=== PATIENT | male | born 1965 | race Two or more races ===

== ENCOUNTER 2020-03-03 10:20 | Inpatient (IN) | payer OTHER, SELFPAY ==
[~2020-03-03] VITALS: Ht 167.6 cm; Wt 82.6 kg
--- NOTE | 2020-03-03 10:20 | NUR ---
SHERIF RA 89 from Home COVID + last Wednesday (02/26/20) +SOB-worse now, 86% O2 saturation RA. to ER bed 6, hooked to monitor, changed to hosp gown, warm blanket provided, patient aao X 4, awaiting MD carlos.
--- NOTE | 2020-03-03 10:25 | NUR ---
IV LINE ESTABLISHED BLOOD DRAWN AND SENT TO LAB.
--- NOTE | 2020-03-03 10:30 | NUR ---
Dr Torres at bedside
--- NOTE | 2020-03-03 10:40 | NUR ---
LABORER MARINE TERMINAL AT BEDSIDE FOR XRAY.
[2020-03-03] MEDS ORDERED: DEXAMETHASONE SOD PHOSPHATE 10 MG/ML VIAL ONE (10:42)
[2020-03-03 10:46] LABS: BASOPHILS % (AUTO) 0.2 % (0.0-2.0); HEMATOCRIT 44 % (39-51); HEMOGLOBIN 15.2 g/dL (13.5-17.5); LYMPHOCYTES # (AUTO) 1.7 /CMM (0.8-4.8); LYMPHOCYTES % (AUTO) 17.7 % (20.0-44.0); MEAN CORPUSCULAR HGB CONC 34 g/dl (31.0-36.0); MEAN CORPUSCULAR VOLUME 94 fL (80-96); MONOCYTES # (AUTO) 0.5 /CMM (0.1-1.30); MONOCYTES % (AUTO) 4.8 % (2.0-12.0); NEUTROPHILS # (AUTO) 7.6 /CMM (1.8-8.9); NEUTROPHILS % (AUTO) 77.3 % (43.0-81.0); PLATELET COUNT (AUTO) 289 /CMM (150-450); RED BLOOD CELL COUNT(AUTO) 4.68 MIL/uL (4.5-6.0); WHITE BLOOD COUNT (AUTO) 9.8 K/uL (4.3-11.0)
[2020-03-03] MEDS ORDERED: IPRATROPIUM NEB FS 0.5 MG/2.5 ML AMPUL.NEB ONE (10:52)
[2020-03-03] MEDS ORDERED: ALBUTEROL FS 2.5 MG/3 ML VIAL.NEB ONE (10:52)
[2020-03-03 10:57] LABS: CALCIUM, SERUM 9.5 mg/dL (8.5-10.1); CARBON DIOXIDE 26 mmol/L (21-32); CHLORIDE 102 mmol/L (98-107); CREATININE 1.5 mg/dL (0.6-1.3); GLUCOSE 207 mg/dL (74-106); POTASSIUM 3.8 mmol/L (3.5-5.1); SODIUM SERUM 139 mmol/L (136-145); UREA NITROGEN, BLOOD 31 mg/dL (7-18)
--- NOTE | 2020-03-03 10:58 | NUR ---
ongoing breathing tx
[2020-03-03] MEDS ORDERED: IPRATROPIUM NEB FS 0.5 MG/2.5 ML AMPUL.NEB NEB ONE (11:00)
[2020-03-03] MEDS ORDERED: ALBUTEROL FS 2.5 MG/3 ML VIAL.NEB NEB ONE (11:00)
[2020-03-03] MEDS ORDERED: DEXAMETHASONE SOD PHOSPHATE 10 MG/ML VIAL IV ONE (11:00)
[2020-03-03 11:09] LABS: ALANINE AMINOTRANSFERASE 34 U/L (12-78); ALBUMIN 2.7 g/dL (3.4-5.0); ALKALINE PHOSPHATASE 97 U/L (46-116); ASPARTATE AMINOTRANSFERASE 29 U/L (15-37); B-TYPE NATRIURETIC PEPTIDE 42 PG/ML (0-125); BILIRUBIN,DIRECT 0.2 mg/dL (0.0-0.2); BILIRUBIN,TOTAL 0.4 mg/dL (0.2-1.0); TOTAL PROTEIN, SERUM 8.2 g/dL (6.4-8.2)
--- NOTE | 2020-03-03 12:21 | NUR ---
removed from oxygen, noted at 89% on RA, asked patient to walk around isolation room without oxygen, O2 saturation at 85%, MD made aware, change of plan, MD decided to admit the patient
--- NOTE | 2020-03-03 13:40 | NUR ---
ANGELA PARADI TENDER AT BEDSIDE FOR EVAL.
--- NOTE | 2020-03-03 14:02 | NUR ---
CALLED HOUSE SUP FOR TELE BED
--- NOTE | 2020-03-03 14:15 | NUR ---
ROOM 114-1
--- NOTE | 2020-03-03 14:20 | NUR ---
COVID SWAB DONE AND SENT TO LAB
[2020-03-03] MEDS ORDERED: MAG HYDROX/AL HYDROX/SIMETH 30 ML UDC PO PRN (14:30)
[2020-03-03] MEDS ORDERED: DEXTROSE 50%-WATER 50 ML DISP.SYRIN IV PRN (14:30)
[2020-03-03] MEDS ORDERED: MAGNESIUM HYDROXIDE 30 ML UDC PO PRN (14:30)
[2020-03-03] MEDS ORDERED: ONDANSETRON HCL/PF 4 MG/2 ML VIAL IVP PRN (14:30)
[2020-03-03] MEDS ORDERED: HYDROCODONE/APAP 5/325MG 1 EACH TABLET PO PRN (14:30)
--- NOTE | 2020-03-03 15:13 | NUR ---
PT TRANSPORTED TO UNIT ON [facility] WITH EMT AND RN ST BEDSIDE W/ ACLS PROTOCOL. NAD NOTED DURING TRANSPORT. PT AMBULATED FROM [facility] POINT TO BED.
--- NOTE | 2020-03-03 15:15 | NUR ---
REPORT GIVEN TO ZAIRA COLLINS FOR MARSHALL AT THE BEDSIDE
[2020-03-03 16:00] VITALS: BP 155/84
[2020-03-03] MEDS: BLOOD SUGAR DIAGNOSTIC 1 EACH STRIP IN SCH ×2 (16:39→21:13)
[2020-03-03] MEDS: IV 1/2NS 1000 ML 1,000 ML IV PRN (16:39)
[2020-03-03] MEDS: HEPARIN SODIUM, PORCINE 5000 UNITS/1 ML VIAL SQ SCH (16:40)
[2020-03-03] MEDS: INSULIN REGULAR, HUMAN 100 UNIT/ML 3 ML VIAL SQ PRN ×2 (18:20→21:16)
[2020-03-03] MEDS ORDERED: ALBUTEROL FS 2.5 MG/3 ML VIAL.NEB NEB PRN (19:30)
--- NOTE | 2020-03-03 19:50 | NUR ---
TELE/RN OPENING NOTES: PT A/OX4. LAO SPEAKING, VERBALLY RESPONSIVE AND ABLE TO MAKE NEEDS KNOWN. NO SOB NOTED. NO S/S OF DISTRESS. ON 5L OF OXYGEN VIA NC SATURATING AT 93%. NO C/O PAIN AT THIS TIME. COVID 19 PRECAUTION MAINTAINED.ON TELE MONITORING WITH READING OF SR 90S. IV ON THE RIGHT WRIST #20G WITH 1/2 NS @75MLS/HR. SAFETY MEASURES IN PLACE. BED IN LOW, LOCKED POSITION. CALL LIGHT WITH IN REACH, WILL CONTINUE TO MONITOR ACCORDINGLY.
[2020-03-03 20:00] VITALS: BP 158/79
[2020-03-04] VITALS: BP 144/72
[2020-03-04 04:00] VITALS: BP 139/76
[2020-03-04 04:42] LABS: APPEARANCE,URINE CLEAR (CLEAR); BILIRUBIN,URINE NEGATIVE (NEGATIVE); BLOOD, URINE NEGATIVE Ery/uL (NEGATIVE); COLOR,URINE YELLOW (YELLOW); KETONES,URINE 15 (NEGATIVE); LEUKOCYTE ESTERASE ,URINE NEGATIVE (NEGATIVE); NITRITE, URINE NEGATIVE (NEGATIVE); PH,URINE 5.5 (5.0-8.0); PROTEIN,URINE NEGATIVE (NEGATIVE); UGLUCOSE >=1000 mg/dL (NEGATIVE); UROBILINOGEN,URINE 0.2 EU/dL (0.2)
[2020-03-04 04:53] LABS: BACTERIA,URINE Few /HPF (None Seen); RBC,URINE 0-2 /HPF (0-2); SQUAMOUS EPITHELIAL CELL,UR Rare /HPF (None Seen)
[2020-03-04] MEDS: IV 1/2NS 1000 ML 1,000 ML IV PRN ×2 (05:24→20:52)
--- NOTE | 2020-03-04 06:45 | NUR ---
TELE/RN CLOSING NOTES: Patient on the bed resting comfortably. Remains A/Ox4, Verbally responsive and able to make needs known. Syriac speaking, understands minimal Nepali. Client is on 5L oxygen via NC saturating at 93-94%. No SOB noted. No s/s of distress, no complains of pain at this time. IV on the R wrist #20g with 1/2 NS running at 75mls/hr. Tele reading of SR 70. Safety mechanisms in place. Bed in low, locked position with SR x2 up. Call light within reach. All due meds given as ordered. Kept pt. warm and comfortable, clean and dry at all times. All nursing needs given and rendered. Will endorse to day shift for MARSHALL.
[2020-03-04 07:41] LABS: BASOPHILS % (AUTO) 0.1 % (0.0-2.0); HEMATOCRIT 43 % (39-51); HEMOGLOBIN 14.3 g/dL (13.5-17.5); LYMPHOCYTES # (AUTO) 0.8 /CMM (0.8-4.8); LYMPHOCYTES % (AUTO) 14.9 % (20.0-44.0); MEAN CORPUSCULAR HGB CONC 34 g/dl (31.0-36.0); MEAN CORPUSCULAR VOLUME 95 fL (80-96); MONOCYTES # (AUTO) 0.5 /CMM (0.1-1.30); MONOCYTES % (AUTO) 8.8 % (2.0-12.0); NEUTROPHILS # (AUTO) 3.9 /CMM (1.8-8.9); NEUTROPHILS % (AUTO) 76.2 % (43.0-81.0); PLATELET COUNT (AUTO) 300 /CMM (150-450); RED BLOOD CELL COUNT(AUTO) 4.49 MIL/uL (4.5-6.0); WHITE BLOOD COUNT (AUTO) 5.2 K/uL (4.3-11.0)
[2020-03-04] MEDS: BLOOD SUGAR DIAGNOSTIC 1 EACH STRIP IN SCH ×4 (07:45→21:11)
[2020-03-04 08:00] VITALS: BP 175/92
[2020-03-04] MEDS ORDERED: METF-440 PO (08:00)
[2020-03-04] MEDS: HEPARIN SODIUM, PORCINE 5000 UNITS/1 ML VIAL SQ SCH ×2 (08:00→20:57)
[2020-03-04] MEDS ORDERED: LOSA25TA27 PO (08:00)
[2020-03-04] MEDS: INSULIN REGULAR, HUMAN 100 UNIT/ML 3 ML VIAL SQ PRN ×4 (08:00→21:10)
[2020-03-04 08:13] LABS: ALBUMIN 2.4 g/dL (3.4-5.0); BILIRUBIN,TOTAL 0.4 mg/dL (0.2-1.0); CREATININE 1.2 mg/dL (0.6-1.3); MAGNESIUM 2.5 mg/dL (1.8-2.4); PHOSPHORUS 3.2 mg/dL (2.5-4.9); POTASSIUM 4.3 mmol/L (3.5-5.1); TOTAL PROTEIN, SERUM 7.6 g/dL (6.4-8.2)
[2020-03-04 08:21] LABS: THYROID STIMULATING HORMONE 0.188 uIU/mL (0.358-3.74)
--- NOTE | 2020-03-04 09:27 | NUR ---
rn notes patient received on 3L nasal cannula, no sob noted, a/o x4 and speaks both welsh and east timorese. R wrist 20 gauge with 1/2 NS @ 75 ml per hour. BS checked and coverage given. 275 BS. Bed at the lowest setting, call light within reach, side rails up x2.
[2020-03-04] MEDS: DEXAMETHASONE SOD PHOSPHATE 10 MG/ML VIAL IV SCH (09:42)
[2020-03-04] MEDS: LOSARTAN POTASSIUM 25 MG TABLET PO SCH (09:43)
[2020-03-04 11:23] LABS: ABG BASE EXCESS -1.9 mmol/L; ABG OXYGEN SATURATION 87.3 % (92.0-98.5); ABG PCO2 35.5 mmHg (35.0-45.0); ABG PH 7.412 (7.350-7.450); ABG PO2 53.8 mmHg (75.0-100.0); AaDO2 132.8 mmHg; COHb 0.4 % (0.5-1.5); MetHb 0.2 % (0.0-1.5); O2Hb 86.8 % (94.0-97.0); SITE, ABG Right Radial
[2020-03-04 12:00] VITALS: BP 175/92
[2020-03-04 12:44] LABS: C-REACTIVE PROTEIN 15.5 mg/dL (0.0-0.9)
[2020-03-04] MEDS ORDERED: INVESTIGATIONAL MED MISC 1 EA in IV NS 0.9% 250 ML IV ONE (13:00)
[2020-03-04] MEDS: hydrALAZINE HCL IV 20 MG VIAL IV PRN ×2 (13:07→16:55)
[2020-03-04] MEDS ORDERED: hydrALAZINE HCL IV 20 MG VIAL IV PRN (13:30)
[2020-03-04 16:00] VITALS: BP 165/86
--- NOTE | 2020-03-04 18:53 | NUR ---
rn notes patient remains on 5L nasal cannula, no sob noted, a/o x4 and speaks both turkish and belarusian. R wrist 20 gauge with 1/2 NS @ 75 ml per hour. BS checked and coverage given. 275 BS. Bed at the lowest setting, call light within reach, side rails up x2. Blood suagr checked and insulin coverage given, no s/s of hypoglycemia noted.
[2020-03-04 20:00] VITALS: BP 149/77
--- NOTE | 2020-03-04 20:02 | NUR ---
STATEMENT SERVICES REPRESENTATIVE OPENING NOTES: RECEIVED PT ON 5LPM VIA NC AND IS TOLERATING WELL. NO SOB NOTED. NO S/S OF DISTRESS. PT IS MALTESE SPEAKING MAINLY BUT CAN UNDERSTAND SOME [place]IMBABWEAN. PT IS A/OX4. PT CONNECTED TO CONTINUOUS PULSE OX ANS SATURATING AT 83%. NO PAIN. PT HAS IV O R HAND #20 G AND IS BEING INFUSED WITH IV 1/2 NS AT 75ML/HR. INSTRUCTED PT TO USE CALL LIGHT. PT ON TELE BOX AND IS SR AT THIS TIME. BED KEPT IN LOW, LOCKED POSITION AND SIDE RAILS X 2 UP. WILL CONTINUE TO MONITOR PT.
--- NOTE | 2020-03-04 21:11 | NUR ---
BOWLING ALLEY FLOORS INSTALLER NOTES: BLOOD SUGAR THIS PM WAS 327. 8 UNITS OF REGULAR INSULIN WAS ADMINISTERED. PT HAS SNACK WELL. WILL CONTINUE TO MONITOR.
[2020-03-05] VITALS: BP 142/76
[2020-03-05 04:00] VITALS: BP 162/78
[2020-03-05] MEDS: hydrALAZINE HCL IV 20 MG VIAL IV PRN (04:38)
--- NOTE | 2020-03-05 06:47 | NUR ---
CLINICAL EDUCATOR CLOSING NOTES: ALL NEEDS WERE ATTENDED AND ANTICIPATED FOR. PT KEPT CLEAN, DRY, AND COMFORTABLE. NO SOB NOTED. NO S/S OF DISTRESS. PT REMAINS ON 5 LPM VIA NC AND IS TOLERATING WELL. PT HAS IV ON R WRIST #20G AND IS BEING INFUSED WITH IV 1/2 NS AT 75ML/HR. BED KEPT IN LOW, LOCKED POSITION, AND SIDE RAILS 2 UP. CALL LIGHT WITHIN REACH WELL. PT REFUSING TO BE CLEANED AND CHANGED. PT DOES NOT WANT TO WEAR GOWN EITHER. PT ON TELE MONITOR AND READING SHOWS SR 73. WILL ENDORSE TO AM NURSE FOR MARSHALL.
[2020-03-05 07:03] LABS: BASOPHILS % (AUTO) 0.2 % (0.0-2.0); HEMATOCRIT 44 % (39-51); HEMOGLOBIN 14.5 g/dL (13.5-17.5); LYMPHOCYTES # (AUTO) 0.9 /CMM (0.8-4.8); LYMPHOCYTES % (AUTO) 12.7 % (20.0-44.0); MEAN CORPUSCULAR HGB CONC 33 g/dl (31.0-36.0); MEAN CORPUSCULAR VOLUME 96 fL (80-96); MONOCYTES # (AUTO) 0.6 /CMM (0.1-1.30); MONOCYTES % (AUTO) 8.5 % (2.0-12.0); NEUTROPHILS # (AUTO) 5.5 /CMM (1.8-8.9); NEUTROPHILS % (AUTO) 78.6 % (43.0-81.0); PLATELET COUNT (AUTO) 355 /CMM (150-450); RED BLOOD CELL COUNT(AUTO) 4.61 MIL/uL (4.5-6.0)
--- NOTE | 2020-03-05 07:09 | NUR ---
SCRAP IRON CUTTER NOTES: LAB CALLED AND SAID HAVE INCOMING NURSE CALL IN REGARDS TO PLASMA.
[2020-03-05 07:34] LABS: ALBUMIN 2.4 g/dL (3.4-5.0); BILIRUBIN,DIRECT 0.1 mg/dL (0.0-0.2); BILIRUBIN,TOTAL 0.4 mg/dL (0.2-1.0); POTASSIUM 3.9 mmol/L (3.5-5.1); TOTAL PROTEIN, SERUM 7.2 g/dL (6.4-8.2)
--- NOTE | 2020-03-05 07:34 | NUR ---
CANVAS GOODS MAKER NOTES: ENDORSED TO AM NURSEADRIANNA, FOR MARSHALL.
--- NOTE | 2020-03-05 07:56 | NUR ---
GAVE REPORT TO ZAIRA THOMAS FOR CONTINUITY OF CARE
[2020-03-05 08:00] VITALS: BP 162/87
--- NOTE | 2020-03-05 08:15 | NUR ---
TELE/RN OPENING NOTES Received patient resting in bed, A&O x 4, Croatian speaking. On 5 L oxygen via NC, breathing even and non-labored. No respiratory or cardiac distress noted. On tele monitor, reading SR 82. Patient denies any pain/discomfort at this time. IV access located on R wrist # 20 gauge. patent and intact, and running 1/2 NS @ 75 ml/hr. No s/s of infection, infiltration, and bleeding noted on site. Sensation from all peripheral extremities intact. Fall precautions maintained. Will continue to monitor patient for any changes in condition.
[2020-03-05] MEDS: BLOOD SUGAR DIAGNOSTIC 1 EACH STRIP IN SCH ×4 (08:59→21:29)
[2020-03-05] MEDS: DEXAMETHASONE SOD PHOSPHATE 10 MG/ML VIAL IV SCH (09:41)
[2020-03-05] MEDS: LOSARTAN POTASSIUM 25 MG TABLET PO SCH (09:41)
[2020-03-05] MEDS: HEPARIN SODIUM, PORCINE 5000 UNITS/1 ML VIAL SQ SCH ×2 (09:43→20:37)
[2020-03-05 12:00] VITALS: BP 164/82
[2020-03-05] MEDS: INSULIN REGULAR, HUMAN 100 UNIT/ML 3 ML VIAL SQ PRN ×2 (12:35→17:04)
[2020-03-05] MEDS: IV 1/2NS 1000 ML 1,000 ML IV PRN (12:38)
[2020-03-05] MEDS: INVESTIGATIONAL MED MISC 1 EA in IV NS 0.9% 250 ML IV SCH (13:23)
[2020-03-05 16:00] VITALS: BP 156/83
--- NOTE | 2020-03-05 18:28 | NUR ---
TELE/RN CLOSING NOTES Received patient resting in bed, A&O x 4. No complaints of pain/discomfort during the whole shift. On 5 L oxygen via NC, breathing even and non-labored, no SOB noted. No respiratory or cardiac distress noted. On tele monitor, reading SR 68. Patient denies any pain/discomfort at this time. IV access located on R wrist # 20 gauge. patent and intact, and running 1/2 NS @ 75 ml/hr. No s/s of infection, infiltration, and bleeding noted on site. Sensation from all peripheral extremities intact. Fall precautions maintained. Will endorse to manufacturing supervisor 2nd shift nurse.
[2020-03-05] MEDS ORDERED: DEXTROSE 50%-WATER 50 ML DISP.SYRIN IV PRN (19:00)
--- NOTE | 2020-03-05 19:40 | NUR ---
RN OPENING NOTE RECEIVED PATIENT IN BED RESTING ALERT ORIENTED VERBALLY RESPONSIVE ABLE TO MAKE NEEDS KNOWN, NO SOB NOT ACUTE DISTRESS NOTED,HE IS ON MONITORING COVID 19 POSITIVE AND DROPLET/CONTACT ISOLATION,HE IS ON 5L OXYGEN VIA NASAL CANNULA, IV SITE IS ON RIGHT WRIST INTACT,PATENT 1/2 NORMAL SALINE RUNNING 75CC/HR.IMPLEMENT SAFETY MEASURE,CONTINUE TO MONITOR.
[2020-03-05 20:00] VITALS: BP 149/79
[2020-03-05] MEDS: *INSULIN REGULAR(HUMULIN R)HUM 100 UNIT/ML VIAL SQ PRN (21:43)
[2020-03-06] VITALS (8 sets, daily range): BP systolic 148–166; BP diastolic 79–89
[2020-03-06] MEDS: IV 1/2NS 1000 ML 1,000 ML IV PRN ×2 (04:24→17:35)
[2020-03-06] MEDS: hydrALAZINE HCL IV 20 MG VIAL IV PRN ×3 (04:40→21:35)
--- NOTE | 2020-03-06 04:41 | NUR ---
RN NOTE HYDRALAZINE 10MG/0.5ML GIVEN DUE TO BP 162/84
[2020-03-06 06:37] LABS: BASOPHILS % (AUTO) 0.1 % (0.0-2.0); HEMATOCRIT 43 % (39-51); HEMOGLOBIN 14.6 g/dL (13.5-17.5); LYMPHOCYTES % (AUTO) 16.5 % (20.0-44.0); MEAN CORPUSCULAR HGB CONC 34 g/dl (31.0-36.0); MEAN CORPUSCULAR VOLUME 95 fL (80-96); MONOCYTES # (AUTO) 0.6 /CMM (0.1-1.30); MONOCYTES % (AUTO) 9.6 % (2.0-12.0); NEUTROPHILS # (AUTO) 4.6 /CMM (1.8-8.9); NEUTROPHILS % (AUTO) 73.8 % (43.0-81.0); PLATELET COUNT (AUTO) 315 /CMM (150-450); RED BLOOD CELL COUNT(AUTO) 4.51 MIL/uL (4.5-6.0); WHITE BLOOD COUNT (AUTO) 6.2 K/uL (4.3-11.0)
--- NOTE | 2020-03-06 06:45 | NUR ---
RN CLOSING NOTE PATIENT REMAINS ALERT ORIENTED X4 VERBALLY RESPONSIVE ON 5L OXYGEN VIA NASAL CANNULA,NO SOB NOT ACUTE DISTRESS NOTED,ALL DUE MEDS GIVEN MD ORDERED,IV SITE IS ON RIGHT WRIST INTACT PATENT 1/2 NS [id number] CC/HR. FROM LAB CALLED AND SAID CONVULSANT PLASMA WILL GET READY,ENDORSE NEXT COMING SHIFT FOR CONTINUATION OF CARE
[2020-03-06 06:48] LABS: ALBUMIN 2.4 g/dL (3.4-5.0); BILIRUBIN,DIRECT 0.1 mg/dL (0.0-0.2); BILIRUBIN,TOTAL 0.4 mg/dL (0.2-1.0); CALCIUM, SERUM 8.9 mg/dL (8.5-10.1); CREATININE 0.9 mg/dL (0.6-1.3); MAGNESIUM 2.2 mg/dL (1.8-2.4); PHOSPHORUS 3.3 mg/dL (2.5-4.9); POTASSIUM 4.4 mmol/L (3.5-5.1); TOTAL PROTEIN, SERUM 6.8 g/dL (6.4-8.2)
--- NOTE | 2020-03-06 07:15 | NUR ---
Tele/RN - Assessment Patient is awake, A/O x 4, no complaints overnight, calm and cooperative, tele shows SR, denies pain, on oxygen at 5lpm via NC, without distress, positive for Covid-19, awaiting convalescent plasma today, completing Remdesivir, currently on dexamethasone. Morning labs reviewed, no critical results seen. Patient is ambulatory with steady gait. Discussed plan of care with pt and in agreement. Will continue with current medical management.
[2020-03-06] MEDS: BLOOD SUGAR DIAGNOSTIC 1 EACH STRIP IN SCH ×4 (07:36→21:35)
[2020-03-06] MEDS: INSULIN REGULAR, HUMAN 100 UNIT/ML 3 ML VIAL SQ PRN ×4 (07:52→22:10)
[2020-03-06] MEDS: DEXAMETHASONE SOD PHOSPHATE 10 MG/ML VIAL IV SCH (08:03)
[2020-03-06] MEDS: HEPARIN SODIUM, PORCINE 5000 UNITS/1 ML VIAL SQ SCH ×2 (08:04→21:34)
[2020-03-06] MEDS: LOSARTAN POTASSIUM 25 MG TABLET PO SCH (08:44)
--- NOTE | 2020-03-06 12:00 | NUR ---
Tele/RN - Notes Convalescent plasma given with no adverse reaction noted. VSS.
[2020-03-06] MEDS: INVESTIGATIONAL MED MISC 1 EA in IV NS 0.9% 250 ML IV SCH (12:17)
[2020-03-06] MEDS: ACETAMINOPHEN 325 MG TABLET PO PRN (12:20)
--- NOTE | 2020-03-06 18:49 | NUR ---
Tele/RN - End of shift summary Patient states feeling better, afebrile, comfortable on 5lpm via NC, SpO2 96-98%, denies pain. Convalescent plasma and Remdesivir dose given today with no adverse reaction seen. All needs attended. Will continue with current plan of care.
--- NOTE | 2020-03-06 19:50 | NUR ---
RN NOTE RECEIVED PATIENT IN BED, AOX4, OCCITAN SPEAKING BUT UNDERSTANDS DUTCH. PATIENT IS AMBULATORY, NO S/SX OF ACUTE DISTRESS AT THIS TIME. PATIENT'S BREATHING IS EVEN AND UNLABORED, ON 5 L OF OXYGEN VIA MASK, SATURATING AT 96%; TOLERATING WELL. PATIENT ON TELE MONITOR READING NSR, HR IS @70'S. NOTED IV SITE ON THE R WRIST WITH 0.45 NS REGULATED AT 75 ML/HR; PATENT AND FLUSHING WELL,NO S/S OF INFECTION OR INFILTRATION. SAFETY MEASURES IMPLEMENTED PER PROTOCOL. HEAD OF BED ELEVATED. BED IS LOCKED, IN LOWEST POSITION AND SIDE RAILS UP. CALL LIGHT WITHIN REACH OF THE PATIENT. WILL CONTINUE TO MONITOR AND REASSESS FOR ANY CHANGES. Addendum: 03/06/20 at 2019 by DEBBIE BOWEN RN PATIENT ON 5L OF SUPPLEMENTAL OXYGEN VIA NASAL CANNULA, SATURATING AT 96%
--- NOTE | 2020-03-06 20:30 | NUR ---
RN NOTE NOTED BP 166/79. REPOSITIONED AND RECHECKED BP, REVEALED 173/80. PRN HYDRALAZINE 10 MG ADMINISTERED ORDERED. WILL CONTINUE TO MONITOR.
--- NOTE | 2020-03-06 21:00 | NUR ---
RN NOTE BP RECHECKED AND REVEALED 151/78. WILL CONTINUE TO MONITOR BP, AND REASSESS.
[2020-03-07] VITALS (8 sets, daily range): BP systolic 133–171; BP diastolic 67–93
--- NOTE | 2020-03-07 04:00 | NUR ---
RN NOTE NOTED BP 166/83 AT 0400. REPOSITIONED AND RECHECKED BP, REVEALED 171/81 ACCOMPANIED BY 5/10 HEADACHE. PRN HYDRALAZINE 10 MG ADMINISTERED ORDERED. WILL CONTINUE TO MONITOR.
--- NOTE | 2020-03-07 05:00 | NUR ---
RN NOTE BP RECHECKED AND REVEALED 154/80. PATIENT STILL COMPLAINING OF 5/10 HEADACHE. PRN NORCO 5/325 MG ADMINISTERED ORDERED. WILL CONTINUE TO MONITOR.
[2020-03-07] MEDS: hydrALAZINE HCL IV 20 MG VIAL IV PRN (05:04)
[2020-03-07] MEDS: IV 1/2NS 1000 ML 1,000 ML IV PRN (06:33)
[2020-03-07] MEDS: BLOOD SUGAR DIAGNOSTIC 1 EACH STRIP IN SCH ×4 (06:41→22:00)
[2020-03-07] MEDS: INSULIN REGULAR, HUMAN 100 UNIT/ML 3 ML VIAL SQ PRN ×3 (06:50→17:43)
--- NOTE | 2020-03-07 06:58 | NUR ---
RN NOTE PATIENT REMAINS IN ROOM RESTING COMFORTABLY. NO SIGNS OF RESPIRATORY DISTRESS ON 5L VIA NC;TOLERATTING WELL SATURATING @ >95% SP02. PATIENT WAS KEPT CLEAN AND DRY THROUGHOUT THE SHIFT. ALL DUE MEDICATIONS WERE ADMINISTERED ORDERED; PATIENT TOLERATED WELL. LATEST BP 137/68. SAFETY MEASURES IMPLEMENTED, BED IN LOWEST POSITION, LOCKED, SIDE RAILS UP, CALL LIGHT WITHIN REACH. ENDORSED TO AM SHIFT RN FOR CONTINUITY OF CARE.
[2020-03-07 07:26] LABS: BASOPHILS % (AUTO) 0.1 % (0.0-2.0); HEMATOCRIT 42 % (39-51); HEMOGLOBIN 14.3 g/dL (13.5-17.5); LYMPHOCYTES # (AUTO) 0.8 /CMM (0.8-4.8); LYMPHOCYTES % (AUTO) 13.1 % (20.0-44.0); MEAN CORPUSCULAR HGB CONC 34 g/dl (31.0-36.0); MEAN CORPUSCULAR VOLUME 94 fL (80-96); MONOCYTES # (AUTO) 0.6 /CMM (0.1-1.30); MONOCYTES % (AUTO) 9.5 % (2.0-12.0); NEUTROPHILS # (AUTO) 4.7 /CMM (1.8-8.9); NEUTROPHILS % (AUTO) 77.3 % (43.0-81.0); PLATELET COUNT (AUTO) 281 /CMM (150-450); RED BLOOD CELL COUNT(AUTO) 4.48 MIL/uL (4.5-6.0); WHITE BLOOD COUNT (AUTO) 6.1 K/uL (4.3-11.0)
--- NOTE | 2020-03-07 07:30 | NUR ---
RN/JEZ RECEIVED PATIENT IN BED. NO ACUTE DISTRESS NOTED. PATIENT ALERT & ORIENTED X4. PATIENT ON 5L OXYGEN VIA NASAL CANULA. PATIENT ON COMPLAINT ADJUSTER, NORMAL SINUS RHYTHM NOTED. PATIENT RIGHT WRIST IV ACCESS INTACT, PATENT, FLUSHED WELL. PATIENT SAFETY MAINTAINED. CALL LIGHT WITHIN REACH. WILL CONTINUE TO MONITOR.
[2020-03-07 07:34] LABS: ALBUMIN 2.4 g/dL (3.4-5.0); BILIRUBIN,DIRECT 0.1 mg/dL (0.0-0.2); BILIRUBIN,TOTAL 0.4 mg/dL (0.2-1.0); CALCIUM, SERUM 8.6 mg/dL (8.5-10.1); CREATININE 0.8 mg/dL (0.6-1.3); POTASSIUM 4.2 mmol/L (3.5-5.1); TOTAL PROTEIN, SERUM 6.5 g/dL (6.4-8.2)
[2020-03-07] MEDS: DEXAMETHASONE SOD PHOSPHATE 10 MG/ML VIAL IV SCH (08:37)
[2020-03-07] MEDS: LOSARTAN POTASSIUM 25 MG TABLET PO SCH (08:37)
[2020-03-07] MEDS: HEPARIN SODIUM, PORCINE 5000 UNITS/1 ML VIAL SQ SCH ×2 (09:15→21:34)
[2020-03-07] MEDS: INVESTIGATIONAL MED MISC 1 EA in IV NS 0.9% 250 ML IV SCH (15:59)
--- NOTE | 2020-03-07 18:41 | NUR ---
RN/JEZ PATIENT IN BED. NO ACUTE DISTRESS NOTED. PATIENT ALERT & ORIENTED X4. PATIENT ON 5L OXYGEN VIA NASAL CANULA. PATIENT ON CRYPTOLOGIC SUPPORT SPECIALIST, NORMAL SINUS RHYTHM NOTED. PATIENT LEFT UPPER ARM MIDLINE IV ACCESS INTACT, PATENT, FLUSHED WELL. PATIENT SAFETY MAINTAINED. CALL LIGHT WITHIN REACH. WILL ENDORSE PLAN OF CARE TO ONCOMING NURSE FOR CONTINUITY OF CARE.
--- NOTE | 2020-03-07 19:10 | NUR ---
RN OPENING NOTE RECEIVED PATIENT IN BED RESTING ALERT ORIENTED X4 VERBALLY RESPONSIVE NO SOB NOT ACUTE DISTRESS NOTED,AT THIS TIME,HE IS ON 5L OXYGEN VIA NASAL CANNULA O2:96%,IV IS ON LEFT UPPER ARM INTACT PATENT.1/2 NORMAL SALINE RUNNING 75CC/HR.AMBULATORY, CONTINENT TO BOWEL/BLADDER,KEEP CALL LIGHT WITHIN REACH,IMPLEMENT SAFETY MEASURE,CONTINUE TO MONITOR
[2020-03-07] MEDS: *INSULIN REGULAR(HUMULIN R)HUM 100 UNIT/ML VIAL SQ PRN (22:04)
[2020-03-08] VITALS: BP 146/70
[2020-03-08 04:48] VITALS: BP 129/65
[2020-03-08 06:18] LABS: BASOPHILS % (AUTO) 0.2 % (0.0-2.0); EOSINOPHILS % (AUTO) 2.5 % (0.0-6.0); HEMATOCRIT 43 % (39-51); HEMOGLOBIN 14.4 g/dL (13.5-17.5); LYMPHOCYTES # (AUTO) 1.5 /CMM (0.8-4.8); LYMPHOCYTES % (AUTO) 21.6 % (20.0-44.0); MEAN CORPUSCULAR HGB CONC 34 g/dl (31.0-36.0); MEAN CORPUSCULAR VOLUME 95 fL (80-96); MONOCYTES # (AUTO) 0.7 /CMM (0.1-1.30); MONOCYTES % (AUTO) 10.2 % (2.0-12.0); NEUTROPHILS # (AUTO) 4.5 /CMM (1.8-8.9); NEUTROPHILS % (AUTO) 65.5 % (43.0-81.0); PLATELET COUNT (AUTO) 284 /CMM (150-450); RED BLOOD CELL COUNT(AUTO) 4.55 MIL/uL (4.5-6.0); WHITE BLOOD COUNT (AUTO) 6.8 K/uL (4.3-11.0)
--- NOTE | 2020-03-08 06:36 | NUR ---
RN CLOSING NOTE PATIENT REMAINS ALERT ORIENTED X4 VERBALLY RESPONSIVE NO SOB NOT ACUTE DISTRESS NOTED,ON 5L OXYGEN VIA NASAL CANNULA O2:96%,HE IS ON COVID 19 POSITIVE MONITORING AND ALSO DROPLET/CONTACT ISOLATION,IV IS ON LEFT UPPER ARM INTACT PATENT.1/2 NORMAL SALINE RUNNING 75CC/HR,ALL DUE MEDS GIVEN MD ORDERED,KEPT CLEAN AND DRY ALL THE TIME,KEPT CALL LIGHT WITHIN REACH,ENDORSE NEXT COMING SHIFT FOR CONTINUATION OF CARE.
--- NOTE | 2020-03-08 07:30 | NUR ---
RN OPENING NOTES Received patient in bed, A/O x4, Hebrew speaker, able to communicate in Norwegian, NC noted, delivering O2 @5L. tolerating well, saturating 99% on monitor, Patient on telemonitor, NSR reading in 80s, Skin is intact,Mid-line L UA midline, running 1/2 NS @ 75 cc/hr, intact and patent. IV. Safety measures implemented, call light in reach, bed in lowest position, will cont to monitor
[2020-03-08] MEDS: BLOOD SUGAR DIAGNOSTIC 1 EACH STRIP IN SCH ×4 (07:53→22:00)
[2020-03-08 08:00] VITALS: BP 137/71
[2020-03-08] MEDS: *INSULIN REGULAR(HUMULIN R)HUM 100 UNIT/ML VIAL SQ PRN ×3 (08:25→17:33)
[2020-03-08] MEDS: HEPARIN SODIUM, PORCINE 5000 UNITS/1 ML VIAL SQ SCH (08:26)
[2020-03-08] MEDS: DEXAMETHASONE SOD PHOSPHATE 10 MG/ML VIAL IV SCH (08:26)
[2020-03-08] MEDS: ACETAMINOPHEN 325 MG TABLET PO PRN (08:26)
[2020-03-08 08:41] LABS: ALBUMIN 2.5 g/dL (3.4-5.0); BILIRUBIN,DIRECT 0.2 mg/dL (0.0-0.2); BILIRUBIN,TOTAL 0.4 mg/dL (0.2-1.0); CALCIUM, SERUM 8.3 mg/dL (8.5-10.1); CREATININE 0.8 mg/dL (0.6-1.3); POTASSIUM 4.6 mmol/L (3.5-5.1); TOTAL PROTEIN, SERUM 5.7 g/dL (6.4-8.2)
[2020-03-08] MEDS: LOSARTAN POTASSIUM 25 MG TABLET PO SCH (08:48)
[2020-03-08 12:00] VITALS: BP_SYST 137; BP_SYST 142; BP_DIAS 71; BP_DIAS 76
[2020-03-08] MEDS: INVESTIGATIONAL MED MISC 1 EA in IV NS 0.9% 250 ML IV SCH (13:01)
--- NOTE | 2020-03-08 13:15 | NUR ---
STARTED INVESTIGATIONAL MED IV. BP NOTED 142/76
--- NOTE | 2020-03-08 13:30 | NUR ---
RECHECKED BP : 145/70 TOLERATING IV MEDICATION WELL, NO S/SX OF SIDE EFFECTS NOTED
[2020-03-08 16:00] VITALS: BP 152/74
[2020-03-08] MEDS: IV 1/2NS 1000 ML 1,000 ML IV PRN (18:25)
--- NOTE | 2020-03-08 19:25 | NUR ---
RN CLOSING NOTES PATIENT REMAIN IN BED, TOLERATING O2 SETTING WELL, SATURATING 96%, TELEMONITOR SHOWS NORMAL SINUS RHYTHM 70-80 NO S/SX RESP DISTRESS, NO SOB, NO PAIN, ALL MEDICATION GIVEN, IV IS INTACT, PATENT, AND INTACT, RUNNING 1/2 NS AT 75CC/HR, SKIN INTACT, COMFORT NEEDS MET, SAFETY MEASURES IMPLEMENTED, PATIENT IS CLEAN, BED IN LOWEST POSITION, CALL LIGHT IN REACH, WILL ENDORSE TO PM, NURSE FOR MARSHALL
[2020-03-08 20:00] VITALS: BP 141/71
[2020-03-09] VITALS (7 sets, daily range): BP systolic 105–154; BP diastolic 65–77
[2020-03-09] MEDS: MORPHINE SULFATE INJ 2 MG/ML DISP.SYRIN IV PRN ×2 (00:47→08:28)
[2020-03-09] MEDS: *INSULIN REGULAR(HUMULIN R)HUM 100 UNIT/ML VIAL SQ PRN ×2 (01:26→21:10)
[2020-03-09] MEDS: HEPARIN SODIUM, PORCINE 5000 UNITS/1 ML VIAL SQ SCH ×3 (01:28→20:55)
[2020-03-09] MEDS: IV 1/2NS 1000 ML 1,000 ML IV PRN ×2 (05:40→16:55)
[2020-03-09 06:37] LABS: BASOPHILS % (AUTO) 0.1 % (0.0-2.0); EOSINOPHILS % (AUTO) 0.6 % (0.0-6.0); HEMATOCRIT 42 % (39-51); HEMOGLOBIN 14.2 g/dL (13.5-17.5); LYMPHOCYTES # (AUTO) 0.9 /CMM (0.8-4.8); LYMPHOCYTES % (AUTO) 11.7 % (20.0-44.0); MEAN CORPUSCULAR HGB CONC 34 g/dl (31.0-36.0); MEAN CORPUSCULAR VOLUME 93 fL (80-96); MONOCYTES # (AUTO) 0.7 /CMM (0.1-1.30); MONOCYTES % (AUTO) 8.3 % (2.0-12.0); NEUTROPHILS # (AUTO) 6.2 /CMM (1.8-8.9); NEUTROPHILS % (AUTO) 79.3 % (43.0-81.0); PLATELET COUNT (AUTO) 284 /CMM (150-450); RED BLOOD CELL COUNT(AUTO) 4.49 MIL/uL (4.5-6.0); WHITE BLOOD COUNT (AUTO) 7.8 K/uL (4.3-11.0)
[2020-03-09 07:30] LABS: ALBUMIN 2.3 g/dL (3.4-5.0); BILIRUBIN,DIRECT 0.1 mg/dL (0.0-0.2); BILIRUBIN,TOTAL 0.3 mg/dL (0.2-1.0); TOTAL PROTEIN, SERUM 6.1 g/dL (6.4-8.2)
[2020-03-09] MEDS: BLOOD SUGAR DIAGNOSTIC 1 EACH STRIP IN SCH ×4 (07:53→21:11)
--- NOTE | 2020-03-09 07:57 | NUR ---
RN NOTES RECEIVED HAND OFF REPORT FROM AMA MENESES FOR MARSHALL UNTIIL REPLACEMENT RN ARRIVES. WILL CONT. TO MONITOR
[2020-03-09] MEDS: DEXAMETHASONE SOD PHOSPHATE 10 MG/ML VIAL IV SCH (08:09)
[2020-03-09] MEDS: LOSARTAN POTASSIUM 25 MG TABLET PO SCH (08:10)
[2020-03-09] MEDS: INSULIN REGULAR, HUMAN 100 UNIT/ML 3 ML VIAL SQ PRN ×3 (08:11→17:15)
--- NOTE | 2020-03-09 09:35 | NUR ---
RN NOTE Patient is resting in bed, A/O x4, showing no signs of acute distress, denies SOB when sitting only when ambulating, saturating >95% on 5L NC. IV line in clean and intact, flushing well. Bed is in lowest position, side rails x3 in upright position, call light is within reach, fall safety and aspiration precautions enforced. Will continue with plan of care.
[2020-03-09] MEDS ORDERED: TOCILIZUMAB 400 MG in IV NS 0.9% 80 ML IV ONE (10:00)
--- NOTE | 2020-03-09 18:06 | NUR ---
RN OPENING NOTE Patient is resting in bed, A/O x4, showing no signs of acute distress or SOB, saturating 96% on 5L NC. MARISOL midline is clean and intact running 0.45% NS @ 75mls/hour. All patient needs met, all due medications given. patient kept clean and dry throughout shift. Bed is in lowest position, side rails x3 in upright position, call light is within reach, fall safety and aspiration precautions enforced. Will endorse to restaurant shift supervisor.
[2020-03-10] VITALS: BP 105/65
[2020-03-10 04:00] VITALS: BP_SYST 105; BP_SYST 117; BP_DIAS 65
[2020-03-10] MEDS: IV 1/2NS 1000 ML 1,000 ML IV PRN ×2 (05:22→18:13)
[2020-03-10 06:21] LABS: BASOPHILS % (AUTO) 0.5 % (0.0-2.0); EOSINOPHILS % (AUTO) 0.7 % (0.0-6.0); HEMATOCRIT 40 % (39-51); HEMOGLOBIN 13.7 g/dL (13.5-17.5); LYMPHOCYTES # (AUTO) 1.2 /CMM (0.8-4.8); MEAN CORPUSCULAR HGB CONC 34 g/dl (31.0-36.0); MEAN CORPUSCULAR VOLUME 93 fL (80-96); MONOCYTES # (AUTO) 0.7 /CMM (0.1-1.30); MONOCYTES % (AUTO) 9.4 % (2.0-12.0); NEUTROPHILS # (AUTO) 5.7 /CMM (1.8-8.9); NEUTROPHILS % (AUTO) 74.4 % (43.0-81.0); PLATELET COUNT (AUTO) 300 /CMM (150-450); RED BLOOD CELL COUNT(AUTO) 4.32 MIL/uL (4.5-6.0); WHITE BLOOD COUNT (AUTO) 7.7 K/uL (4.3-11.0)
[2020-03-10 06:49] LABS: CALCIUM, SERUM 8.6 mg/dL (8.5-10.1); CREATININE 0.8 mg/dL (0.6-1.3); PHOSPHORUS 3.5 mg/dL (2.5-4.9); POTASSIUM 4.4 mmol/L (3.5-5.1)
--- NOTE | 2020-03-10 07:25 | NUR ---
MINK SLICER OPENING NOTES RECEIVED PT ON BED, AAOX4, RESPONSIVE TO STIMULI. ASSESSED NO PRESENCE OF ACUTE RESPIRATORY DISTRESS, ON O2 AT5 LPM VIA N/C, JUAN DANIEL WELL. PT STATED HE CAN BREATH BETTER IN MINIMAL EXERTION SUCH REPOSITIONING. ABD SOFT AND NON DISTENDED WITH ACTIVE BOWEL SOUNDS, ON BRP/URINAL. PT DENIES PAIN AND DISCOMFORT. SKIN WARM TO TOUCH AND DRY. IV SITE AT LEFT UPPER MIDLINE RUNNING 1/2NS @ 75 ML/HR. BED IN LOW LOCKED POSITION, SRX2 UP FOR SAFETY, CALL LIGHT WITHIN REACHED. TELE MONITOR SHOWS NSR AT 64. CONTINUE TO MONITOR CARE.
[2020-03-10] MEDS: BLOOD SUGAR DIAGNOSTIC 1 EACH STRIP IN SCH ×4 (07:42→22:01)
[2020-03-10 08:53] VITALS: BP 137/72
[2020-03-10] MEDS: LOSARTAN POTASSIUM 25 MG TABLET PO SCH (09:17)
[2020-03-10] MEDS: DEXAMETHASONE SOD PHOSPHATE 10 MG/ML VIAL IV SCH (09:17)
[2020-03-10] MEDS: INSULIN REGULAR, HUMAN 100 UNIT/ML 3 ML VIAL SQ PRN ×3 (09:18→16:41)
[2020-03-10] MEDS: HEPARIN SODIUM, PORCINE 5000 UNITS/1 ML VIAL SQ SCH (09:18)
--- NOTE | 2020-03-10 10:39 | NUR ---
FLOAT TENDER NOTES CONVALESCENT PLASMA INFUSED, FINISHED 03/09 PER CHARGE NURSE SOON. COMPLETED TASK LIST UNDER INTERVENTION.
[2020-03-10 12:12] VITALS: BP 121/71
--- NOTE | 2020-03-10 12:45 | NUR ---
LEAD ENGINEER NOTES O2 VIA N.C TITER TO 3LPM PT SATING 93-95%. INSTRUCTED DEEP BREATHING EXERCISES. PT ABLE TO UNDERSTOOD AND PERFORM CORRECTLY.
[2020-03-10 16:04] VITALS: BP 114/73
--- NOTE | 2020-03-10 18:50 | NUR ---
REAL ESTATE SUBAGENT CLOSING NOTES PT AAOX4, ABLE TO MAKE NEEDS KNOWN. ON ISOLATION FOR COVID19 POSITIVE, ON O2 AT 3LPM SATING >95%, JUAN DANIEL WELL. PT HAS NO C/O OF SOB THROUGHOUT THE SHIFT. BM TODAY. PT DENIES PAIN AND DISCOMFORT. NO NEW OPEN SKIN BREAKDOWN. TELE MONITOR ON NSR. IV SITE AT LEFT UPPER ARM MIDLINE PATENT IN FLUSHING RUNNING 1/2NS AT 75 ML/HR. BED IN LOW LOCKED POSITION, SRX2 UP FOR SAFETY, CALL LIGHT WITHIN REACHED. ENDORSED CARE TO NEXT SHIFT.
--- NOTE | 2020-03-10 19:40 | NUR ---
RN OPENING NOTE RECEIVED PATIENT IN BED RESTING ALERT ORIENTED X4 VERBALLY RESPONSIVE ABLE TO MAKE NEEDS KNOWN,ON 3L OXYGEN O2:97% HR:71. BREATHING IS EVEN AND UNLABORED NO SOB NOT ACUTE DISTRESS NOTED,ON MONITORING FOR COVID 19 POSITIVE AND DROPLET/CONTACT ISOLATION,IV SITE IS MID LINE ON LEFT UPPER ARM,INTACT, PATENT.IV HYDRATION RUINING 1/2 NS 75CC/HR.IMPLEMENT SAFETY MEASURE,BED IN LOW POSITION LOCKED,BED ALARM IS ON,KEEP CALL LIGHT WITHIN REACH,CONTINUE TO MONITOR.
[2020-03-10 20:00] VITALS: BP 118/72
[2020-03-10] MEDS: *INSULIN REGULAR(HUMULIN R)HUM 100 UNIT/ML VIAL SQ PRN (22:07)
[2020-03-11] VITALS: BP 137/77
[2020-03-11 04:00] VITALS: BP 117/67
--- NOTE | 2020-03-11 06:35 | NUR ---
RN CLOSING NOTE PATIENT REMAINS ON MONITORING FOR COVID 19 POSITIVE AND DROPLET/CONTACT ISOLATION,ALERT ORIENTED X4 VERBALLY RESPONSIVE NO SOB NOT ACUTE DISTRESS NOTED,BREATHING IS EVEN AND NON LABORED,ON 3L OXYGEN VIA NASAL CANNULA ,O2:96% IV SITE IS ON LEFT UPPER ARM MIDLINE INTACT PATENT,IV HYDRATION 1/2NS RUNNING 75CC/HR,ALL DUE MEDS GIVEN MD ORDERED,KEPT CLEAN AND DRY ALL THE TIME,KEPT CALL LIGHT WITHIN REACH,ALL NEEDS MET.ENDORSE NEXT COMING SHIFT FOR CONTINUATION OF CARE.
--- NOTE | 2020-03-11 07:21 | NUR ---
TELE/RN OPENING NOTES RECEIVED PATIENT ON BED. NO APPARENT RESPIRATORY DISTRESS NOTED. DENIES PAIN AT THIS TIME. ON TELE MONITOR SINUS BRAXTON 55 BPM. WILL CONTINUE TO MONITOR.
[2020-03-11] MEDS: INSULIN REGULAR, HUMAN 100 UNIT/ML 3 ML VIAL SQ PRN ×3 (07:40→17:02)
[2020-03-11] MEDS: BLOOD SUGAR DIAGNOSTIC 1 EACH STRIP IN SCH ×4 (07:41→22:00)
[2020-03-11 08:00] VITALS: BP 127/64
[2020-03-11] MEDS: DEXAMETHASONE SOD PHOSPHATE 10 MG/ML VIAL IV SCH (08:12)
[2020-03-11] MEDS: LOSARTAN POTASSIUM 25 MG TABLET PO SCH (08:37)
[2020-03-11] MEDS: IV 1/2NS 1000 ML 1,000 ML IV PRN ×2 (08:37→22:49)
[2020-03-11 09:51] LABS: ABG BASE EXCESS 0.6 mmol/L; ABG OXYGEN SATURATION 94.8 % (92.0-98.5); ABG PCO2 36.2 mmHg (35.0-45.0); ABG PH 7.445 (7.350-7.450); AaDO2 83.9 mmHg; COHb 0.3 % (0.5-1.5); MetHb 0.2 % (0.0-1.5); O2Hb 94.3 % (94.0-97.0); SITE, ABG Right Radial
--- NOTE | 2020-03-11 09:57 | NUR ---
TELE/RN NOTES CHEST XRAY RESULT IS AWARE. Addendum: 03/11/20 at 0958 by ROSA MARIA FLANAGAN RN ERROR
--- NOTE | 2020-03-11 09:58 | NUR ---
TELE/RN NOTES CHEST XRAY RESULT IS IN MD IS AWARE. NO NEW ORDER AT THIS TIME.
[2020-03-11 12:00] VITALS: BP 119/84
[2020-03-11 16:00] VITALS: BP 121/82
--- NOTE | 2020-03-11 19:08 | NUR ---
TELE/RN CLOSING NOTES PATIENT IS ON BED. ALERT AND ORIENTED X4. PATIENT IN NO APPARENT RESPIRATORY DISTRESS NOTED. PATIENT DENIES PAIN AT THIS TIME. PATIENT IN TELE MONITOR SINUS RHYTHM 61 BPM. PATIENT ON OXYGEN 2L VIA NASAL CANNULA SAO2 97%. IV ACCESS AT LEFT UPPER MIDLINE WITH IV FLUID OF 1/2 NS 1L AT 75 ML/HR ON AND INFUSING WELL. SEEN AND EXAMINED BY MD WITH ORDERS MADE AND CARRIED OUT. ALL DUE MEDICATION WAS GIVEN. PATIENT IS ON ISOLATION PRECAUTION. CHECKED PATIENT EVERY 2 HOURS. PATIENT BED IS IN LOWEST POSITION AND LOCKED, SIDE RAILS UP X2. CALL LIGHT WITHIN REACH. WILL ENDORSED TO EDGE PLUGGER FOR MARSHALL.
--- NOTE | 2020-03-11 19:40 | NUR ---
RN OPENING NOTE RECEIVED PATIENT IN BED RESTING ALERT ORIENTED X4 VERBALLY RESPONSIVE NO SOB NOT ACUTE DISTRESS NOTED,FULL CODE,ON MONITORING FOR COVID 19 POSITIVE DROPLET/CONTACT ISOLATION,IV SITE IS ON LEFT UPPER ARM MIDLINE INTACT PATENT 1/2 N/S RUNNING 75 CC/HR,AMBULATORY CONTENT TO BOWEL/BLADDER,SKIN IS WARM TO TOUCH,CALL LIGHT WITHIN REACH,BED ALARM IS ON,BED IS IN LOW POSITION,IMPLEMENT SAFETY MEASURE,CONTINUE TO MONITOR.
[2020-03-11 20:00] VITALS: BP 131/70
[2020-03-11] MEDS: *INSULIN REGULAR(HUMULIN R)HUM 100 UNIT/ML VIAL SQ PRN (22:02)
[2020-03-12] VITALS: BP 123/70
[2020-03-12 04:00] VITALS: BP 132/68
--- NOTE | 2020-03-12 06:42 | NUR ---
RN CLOSING NOTE PATIENT REMAINS ON ALERT ORIENTED X4 VERBALLY RESPONSIVE NO SOB NOT ACUTE DISTRESS NOTED,DENIES ANY PAIN,ON 2L OXYGEN VIA NASAL CANNULA, O2:97% HR 61 ON MONITORING FOR COVID 19 POSITIVE/DROPLET/CONTACT ISOLATION,IV SITE IS ON LEFT UPPER ARM MID LINE INTACT,PATENT. 1/2 NS IV HYDRATION RUNNING 75CC/HOUR ALL DUE MEDS GIVEN MD ORDERED,KEPT CLEAN AND DRY ALL THE TIME,KEPT CALL LIGHT WITHIN REACH,ALL NEEDS ATTENDED,ENDORSE NEXT SHIFT FOR CONTINUATION OF CARE.
[2020-03-12 06:56] LABS: BASOPHILS % (AUTO) 0.1 % (0.0-2.0); EOSINOPHILS % (AUTO) 0.2 % (0.0-6.0); HEMATOCRIT 41 % (39-51); HEMOGLOBIN 13.8 g/dL (13.5-17.5); LYMPHOCYTES % (AUTO) 12.7 % (20.0-44.0); MEAN CORPUSCULAR HGB CONC 34 g/dl (31.0-36.0); MEAN CORPUSCULAR VOLUME 94 fL (80-96); MONOCYTES # (AUTO) 0.8 /CMM (0.1-1.30); MONOCYTES % (AUTO) 10.2 % (2.0-12.0); NEUTROPHILS # (AUTO) 6.3 /CMM (1.8-8.9); NEUTROPHILS % (AUTO) 76.8 % (43.0-81.0); PLATELET COUNT (AUTO) 282 /CMM (150-450); RED BLOOD CELL COUNT(AUTO) 4.35 MIL/uL (4.5-6.0); WHITE BLOOD COUNT (AUTO) 8.1 K/uL (4.3-11.0)
[2020-03-12 07:11] LABS: CREATININE 0.6 mg/dL (0.6-1.3); MAGNESIUM 1.9 mg/dL (1.8-2.4); PHOSPHORUS 4.4 mg/dL (2.5-4.9); POTASSIUM 4.3 mmol/L (3.5-5.1)
[2020-03-12] MEDS: BLOOD SUGAR DIAGNOSTIC 1 EACH STRIP IN SCH ×4 (07:47→21:43)
[2020-03-12] MEDS: INSULIN REGULAR, HUMAN 100 UNIT/ML 3 ML VIAL SQ PRN ×3 (07:49→16:57)
[2020-03-12 08:00] VITALS: BP 109/65
--- NOTE | 2020-03-12 08:01 | NUR ---
RN OPENING NOTES: RECEIVED PT IN BED RESTING A/O X4, WITH NO SIGNS OF RESPIRATORY DISTRESS, SOB, OR ANY PAIN. PT IS ON NC O2 SAT 97%, TELE MONITOR 61, PT IS AMBULATORY WITH BRP. IV MARISOL MIDLINE 1/2 NS 75CC/HR INTACT, WELL FLUSHED. PTS SAFETY MEASURES MAINTAINED CALL LIGHT WITHIN REACH WILL CONTINUE TO MONITOR CLOSELY.
[2020-03-12] MEDS: LOSARTAN POTASSIUM 25 MG TABLET PO SCH (08:34)
[2020-03-12] MEDS: DEXAMETHASONE SOD PHOSPHATE 10 MG/ML VIAL IV SCH (08:35)
--- NOTE | 2020-03-12 09:48 | NUR ---
RN NOTES: PER DR FRIEDMAN ORDER AMBULATE THE PT WITH ASSISTANCE.
--- NOTE | 2020-03-12 10:18 | NUR ---
RN NOTES: PT WAS AMBULATED IN THE ROOM WITH MINIMAL ASSISTANCE, TOLERATED WELL, DVT PUMPS ARE PUT. WILL CONTINUE TO MONITOR.
[2020-03-12 10:46] LABS: C-REACTIVE PROTEIN 0.3 mg/dL (0.0-0.9)
--- NOTE | 2020-03-12 11:07 | NUR ---
telephone lines repairer note seen by dr gilbert with possible discharge patent home
[2020-03-12 12:00] VITALS: BP 128/75
--- NOTE | 2020-03-12 12:49 | NUR ---
telephone diaphragm assembler note recheck o2 saturation on ra ,sat 86-87% at this time
--- NOTE | 2020-03-12 12:54 | NUR ---
PATIENT ROOM AIR SATURATION AT REST 86%,MD MADE AWARE NEED HOME OXYGEN CM NOTIFIED.
--- NOTE | 2020-03-12 14:38 | NUR ---
STOCK PULLER NOTE PER INSECT CONTROL AIDE STILL AWAITING FOR O2 SUPPLY AT HOME PRIOR DISCHARGE, WILL F\U Addendum: 03/12/20 at 1441 by HUSEYIN BYERS RN ASSISTED TO BR ,ABLE TO AMBULATE WITH STAFF WILL CONT TO MONITOR
[2020-03-12] MEDS: IV 1/2NS 1000 ML 1,000 ML IV PRN (14:48)
[2020-03-12 16:00] VITALS: BP 139/75
--- NOTE | 2020-03-12 16:12 | NUR ---
DENTAL LAB TECHNICIAN NOTE PER DR CASH PATIENT MOST LIKELY WILL BE DISCHARGE TOMORROW HOME
--- NOTE | 2020-03-12 18:42 | NUR ---
RN CLOSING NOTES: PT IN BED AWAKE A/OX4, NC O2 97%, TELE MONITOR NSR 61. NO SIGNS OF RESPIRATORY DISTRESS, SOB, OR ANY PAIN. IV MARISOL MIDLINE 1/2 NS 75CC/HR, INTACT, PATENT AND FLUSHED WELL. ALL SAFETY MEASURES MAINTAINED, CALL LIGHT WITHIN REACH. WILL ENDORSE TO THE PM NURSE FOR CONTINUATION OF CARE.
--- NOTE | 2020-03-12 19:30 | NUR ---
RN OPENING NOTE RECEIVED PATIENT IN BED RESTING ALERT ORIENTED X4 VERBALLY RESPONSIVE ON TELE MONITORING,FULL CODE, NO SOB NOT ACUTE DISTRESS NOTED AT THIS TIME,DENIES PAIN,NO MONITORING FOR COVID 19 POSITIVE DROPLET/CONTACT ISOLATION,ON 2L OXYGEN VIA NASAL CANNULA,O2:97% ,HR 80 .IV SITE IS ON LEFT UPPER ARM MID LINE INTACT PATENT,IV HYDRATION 1/2 NS RUNNING 75CC/HR,AMBULATORY WITH ASSIST,IMPLEMENT SAFETY MEASURE,BED ALARM IS ON,BED IS ON LOW POSITION,AND LOCKED,KEEP CALL LIGHT WITHIN REACH,CONTINUE TO MONITOR.
[2020-03-12 20:00] VITALS: BP 111/54
[2020-03-12] MEDS: *INSULIN REGULAR(HUMULIN R)HUM 100 UNIT/ML VIAL SQ PRN (21:47)
[2020-03-13] VITALS: BP 125/67
[2020-03-13] MEDS: IV 1/2NS 1000 ML 1,000 ML IV PRN (02:58)
[2020-03-13 04:00] VITALS: BP 143/68
--- NOTE | 2020-03-13 06:34 | NUR ---
RN CLOSING NOTE PATIENT REMAINS IN BED RESTING,ALERT ORIENTED X4 VERBALLY RESPONSIVE ON MONITORING FOR COVID 19 POSITIVE DROPLET/CONTACT ISOLATION,ON 2L OXYGEN VIA NASAL CANNULA,O2:97% NO SOB NOT ACUTE DISTRESS NOTED,IV SITE IS ON LEFT UPPER ARM MID LINE INTACT PATENT IV HYDRATION 1/2 NS RUNNING 75CC/HR.AMBULATORY WITH ASSIST,IMPLEMENTED SAFETY MEASURE,BED IN LOW POSITION AND LOCKED,KEPT CALL LIGHT WITHIN REACH,KEPT CLEAN AND DRY ALL THE TIME,ALL NEEDS MET,ENDORSE NEXT COMING SHIFT FOR CONTINUATION OF CARE.
--- NOTE | 2020-03-13 07:44 | NUR ---
WATCH COMMANDER OPENING NOTE PATIENT IN BED RESTING COMFORTABLY. PATIENT IN NO ACUTE DISTRESS. NO SOB NOTED. PATIENT BREATHING IS EVEN AND UNLABORED. PATIENT ON CARDIAC MONITORING READING SINUS BRADYCARDIA HR 52. PATIENT SAFETY PRECAUTIONS IN PLACE. ISOLATION PRECAUTIONS IN PLACE. BED ALARM IS ON. PATIENT BED IS LOCKED AND IN LOWEST POSITION. CALL LIGHT WITHIN REACH. WILL CONTINUE TO MONITOR.
[2020-03-13 08:00] VITALS: BP 149/79
[2020-03-13] MEDS: BLOOD SUGAR DIAGNOSTIC 1 EACH STRIP IN SCH ×3 (08:08→16:58)
[2020-03-13] MEDS: DEXAMETHASONE SOD PHOSPHATE 10 MG/ML VIAL IV SCH (08:32)
[2020-03-13] MEDS: INSULIN REGULAR, HUMAN 100 UNIT/ML 3 ML VIAL SQ PRN ×3 (08:32→17:03)
[2020-03-13] MEDS: LOSARTAN POTASSIUM 25 MG TABLET PO SCH (08:33)
[2020-03-13 12:00] VITALS: BP 135/64
--- NOTE | 2020-03-13 14:00 | NUR ---
CMM INSPECTOR NOTE PATIENT IN BED RESTING COMFORTABLY. PATIENT IN NO ACUTE DISTRESS. NO SOB NOTED. PATIENT BREATHING IS EVEN AND UNLABORED. PATIENT PORTABLE O2 ARRIVED AND EDUCATED USE OF PORTABLE O2 FOR DISCHARGE. PATIENT VERBALIZED UNDERSTANDING.
[2020-03-13 16:00] VITALS: BP 139/101
[2020-03-13 17:13] VITALS: BP 134/74
--- NOTE | 2020-03-13 18:17 | NUR ---
SYBASE DEVELOPER NOTE PATIENT MEDICALLY CLEARED FOR DISCHARGE. PATIENT IN NO ACUTE DISTRESS. NO SOB NOTED. PATIENT BREATHING IS EVEN AND UNLABORED. EXPLAINED DC INSTRUCTIONS. PATIENT VERBALIZED UNDERSTANDING. PATIENT HAS BELONGINGS WITH HIM AND SIGNED BELONGINGS LIST. IV REMOVED. ID BANDS REMOVED. PATIENT SKIN ASSESSED, NO NEW SKIN BREAKDOWN NOTED. PER BACKER UP MARTHA O2 CONCENTRATOR DELIVERED TO PATIENTS HOME. PATIENT CONFIRMED DELIVERY WITH SONS THERE FOR ELECTRONICS MECHANIC APPRENTICE. IF ISSUES PER MARTHA GIVE HER A PHONE CALL, I GAVE BACKER UP ANNS NUMBER TO PATIENT ALONG WITH CUSTOMER SERVICE NUMBER OF O2 CONCENTRATORS PROVIDER. EDUCATED USE OF PORTABLE OXYGEN. PATIENT KEPT CLEAN, DRY, AND COMFORTABLE THROUGHOUT SHIFT. NEEDS AND CONCERNS ADDRESSED. PATIENT AMBULATORY WITH ASSIST TO WHEELCHAIR. PATIENT PICKED UP BY SON. AWARE OF DISCHARGE.
== END 2020-03-13 17:55 | disposition home or self-care (01) | DRG 177 ==
LOC: ER 10:23 → TELE1 14:19
PROVIDERS: ADMIT Nurse Practitioner Acute Care; ATTEND Student in an Organized Health Care Education/Training Program
PROC: 30233L1 Transfusion of Nonautologous Fresh Plasma into Peripheral Vein, Percutaneous Approach (ICD-10-PCS; principal; 2020-03-06)
PROC: 05HY33Z Insertion of Infusion Device into Upper Vein, Percutaneous Approach (ICD-10-PCS; 2020-03-07)
DX: U07.1 COVID-19 (principal); N17.0 Acute kidney failure with tubular necrosis; J96.01 Acute respiratory failure with hypoxia; J12.89 Other viral pneumonia; E44.0 Moderate protein-calorie malnutrition; I10 Essential (primary) hypertension; E66.9 Obesity, unspecified; E88.09 Other disorders of plasma-protein metabolism, not elsewhere classified; Z68.29 Body mass index [BMI] 29.0-29.9, adult; E86.0 Dehydration; R79.89 Other specified abnormal findings of blood chemistry; Z79.84 Long term (current) use of oral hypoglycemic drugs; E11.65 Type 2 diabetes mellitus with hyperglycemia
CPT/HCPCS: 36415; 36600; 71045-TC; 80048-TC; 80053-TC; 80061-TC; 80076-TC; 81000-TC; 82728-TC; 82803-TC; 82962-TC; 83615-TC; 83735-TC; 83880; 84100-TC; 84443-TC; 84484-TC; 85025-TC; 85378-TC; 85610-TC; 85730-TC; 86140-TC; 86850-TC; 87081-TC; 94799-TC; 97116-TC; 97530-TC; G0378; J0360; J1100; J1644; J1815; J2270; J3262; J3490; J7030; J7050; P9017-BL; U0003-CS